=== PATIENT | female | born 1980 | race Caucasian/White ===

== ENCOUNTER 2019-06-28 05:22 | Inpatient (IN) | payer MEDICAID ==
[2019-06-28] MEDS ORDERED: Methylergonovine 0.2 MG/1 ML Amp IM PRN ×2 (07:03→17:41)
[2019-06-28] MEDS ORDERED: Carboprost Tromethamine 250 MCG/1 ML Amp IM PRN (07:03)
[2019-06-28] MEDS ORDERED: Sodium Chloride 0.9% 2.5 ML Syringe FLUSH PRN (07:03)
[2019-06-28] MEDS ORDERED: Ampicillin 2 GM in Sodium Chloride 0.9% 100 ML IV ONE (07:03)
[2019-06-28] MEDS ORDERED: Butorphanol 1 MG/ML SDV IVPUSH PRN (07:03)
[2019-06-28] MEDS ORDERED: Nalbuphine 10 MG/1 ML Vial IVPUSH PRN (07:03)
[2019-06-28] MEDS ORDERED: Sodium Chloride 0.9% 10 ML SDV IV PRN (07:03)
[2019-06-28] MEDS ORDERED: Water For Irrigation,Sterile 1,000 ML Container IRR PRN (07:03)
[2019-06-28] MEDS ORDERED: Sodium Chloride 0.9% 10 ML Syringe FLUSH PRN (07:03)
[2019-06-28] MEDS ORDERED: Misoprostol 200 MCG Tab PO PRN (07:03)
[2019-06-28] MEDS ORDERED: Tranexamic Acid 1,000 MG in Sodium Chloride 0.9% 100 ML IV PRN (07:03)
[2019-06-28] MEDS ORDERED: Lidocaine 1% 50 ML MDV INJECT PRN (07:03)
[2019-06-28] MEDS ORDERED: Lactated Ringers 1,000 ML IV SCH (07:15)
[2019-06-28] MEDS ORDERED: Oxytocin/0.9 % Sodium Chloride 30 UNIT/500 ML BAG IV SCH ×2 (07:15→13:45)
[2019-06-28] MEDS: Ampicillin 1 GM in Sodium Chloride 0.9% 50 ML IV SCH ×2 (10:45→16:30)
[2019-06-28] MEDS ORDERED: Terbutaline 1 MG/ML SDV SUBCUT PRN (13:37)
--- NOTE | 2019-06-28 17:08 | PCM.OPNOTE ---
- General Post-Op/Procedure Note Date of Surgery/Procedure: 06/28/19 Findings: of live male . Apgars 8/8. Weight pending. 3VC. Placenta intact. Pre Op Diagnosis: 38yo IUP at 39/3 presenting with SROM Post-Op Diagnosis: same Primary Surgeon: Yana Caro Broom Stitcher: Sneha Driver Role of Broom Stitcher: 4th Year Medical Student EBL in mLs: 300 Condition: Good
[2019-06-28] MEDS ORDERED: oxyCODONE 5 MG Tab PO PRN (17:41)
[2019-06-28] MEDS ORDERED: Lanolin 100% Cream 7 GM Tube TOP PRN (17:41)
[2019-06-28] MEDS ORDERED: Benzocaine/Menthol 20%-0.5% Spray 78 GM Cannister TOP PRN (17:41)
[2019-06-28] MEDS ORDERED: Bisacodyl 10 MG Supp RECTAL PRN (17:41)
[2019-06-28] MEDS ORDERED: Acetaminophen 500 MG Tab PO PRN ×2 (17:41)
[2019-06-28] MEDS ORDERED: Hydrocortisone 2.5% Crm 30 GM Tube TOP PRN (17:41)
[2019-06-28] MEDS ORDERED: Ibuprofen 400 MG Tab PO PRN (17:41)
[2019-06-28] MEDS ORDERED: Witch Hazel Medicated Pads 40/Jar TOP ONE (17:53)
[2019-06-28] MEDS ORDERED: Ibuprofen 800 MG Tab ONE (17:53)
[2019-06-28] MEDS ORDERED: Docusate Sodium 100 MG Cap ONE (17:54)
[2019-06-28] MEDS ORDERED: Benzocaine/Menthol 20%-0.5% Spray 78 GM Cannister ONE (17:54)
[2019-06-28] MEDS: Docusate Sodium 100 MG Cap PO PRN (18:01)
[2019-06-28] MEDS: Ibuprofen 800 MG Tab PO PRN (18:01)
[2019-06-28] MEDS: Witch Hazel Medicated Pads 40/Jar TOP PRN (18:01)
--- NOTE | 2019-06-28 18:29 | OR ---
SURGEON: Yana Caro M.D. DATE OF PROCEDURE: 06/28/2019 PREOPERATIVE DIAGNOSES: A39-3/7 weeks' intrauterine , premature rupture of membranes with induction, and term spontaneous vaginal delivery. POSTOPERATIVE DIAGNOSES: 39-3/7 weeks' intrauterine , premature rupture of membranes with induction, and term spontaneous vaginal delivery. PROCEDURE: Pitocin induction of labor and term spontaneous vaginal delivery. PRIMARY SURGEON: Yana Caro MD. CLAIMS MANAGER: ROWAN Pedraza. ANESTHESIA: None. ESTIMATED BLOOD LOSS: Less than 300 mL. FINDINGS: Liveborn male, scores 8 and 8, weighing 3640 g. Placenta spontaneous, Schultze intact, with 3 vessels. Perineum intact. BRIEF HISTORY: This is a 38-year-old female, G7, P 5-0-1-5, who presents at 39-3/7 weeks' gestation with spontaneous rupture of membranes at approximately 5:30 a.m. She had category 1 heart tones. She has had uncomplicated care. She is group B strep positive. She was started on ampicillin upon arrival, and she received 3 doses of ampicillin prior to delivery. Approximately 8 hours after rupture of membranes, she had only progressed from a 4 to a 5+ dilatation with mild irregular contractions. Therefore, she did agree to Pitocin augmentation, which was performed. She went up to a maximum of 8 milliunits per minute of Pitocin, and she progressed to complete. DESCRIPTION OF PROCEDURE: With the patient in dorsal lithotomy position, the patient pushed over a 10- minute time period to a 5+ station at which time the head was delivered spontaneously and atraumatically over the perineum with support. Notably, the head was delivered in a direct occiput posterior position with subsequent delivery of the 's right shoulder anteriorly and left shoulder posteriorly and remainder of the 's body. The infant was bulb suctioned by nose and mouth. After the cord had ceased to pulsate, it was doubly clamped and cut, and the infant was handed to the mother in the presence of the nurse attending delivery. The infant was a liveborn male, scores of 8 and 8, weighing 3640 g. Cord blood was collected for cord ABGs as well as routine cord blood sampling. Pitocin was initiated after delivery of the to assist with delivery of the placenta, which was delivered spontaneously, Schultze intact with 3 vessels. Upon inspection the pelvis and perineum, there were no periurethral, vaginal sidewall, cervical, rectal, or perineal lacerations. EBL was less than 300 mL. Mother and baby remained in LDR in good condition. EMY SCHMITZ /[id number] MTDD
[2019-06-29] MEDS: Ibuprofen 800 MG Tab PO PRN ×3 (00:21→17:22)
--- NOTE | 2019-06-29 04:54 | PCM.PNPP ---
<Sneha Driver - Last Filed: 06/29/19 04:54> - General Info Date of Service: 06/29/19 Functional Status: Reports: Pain Controlled - Review of Systems General: Reports: No Symptoms. Denies: Fever, Chills HEENT: Reports: No Symptoms. Denies: Headaches Pulmonary: Reports: No Symptoms. Denies: Shortness of Breath Cardiovascular: Reports: No Symptoms. Denies: Chest Pain, Palpitations Gastrointestinal: Reports: No Symptoms. Denies: Abdominal Pain Genitourinary: Reports: No Symptoms. Denies: Dysuria Musculoskeletal: Reports: No Symptoms Skin: Reports: No Symptoms Neurological: Reports: No Symptoms Psychiatric: Reports: No Symptoms - General Info Date of Service: 06/29/19 - Patient Data Vital Signs - Most Recent: Last Vital Signs Temp 97.5 F 06/28/19 21:53 Pulse 78 06/28/19 21:53 Resp 17 06/28/19 21:53 BP 123/62 06/28/19 21:53 Pulse Ox 97 06/28/19 21:53 Weight - Most Recent: 101.605 kg Lab Results - Last 24 Hours: Laboratory Results - last 24 hr 06/28/19 06/28/19 06/28/19 Range/Units 05:20 06:20 07:25 WBC 12.99 H (4.0-11.0) K/uL RBC 3.40 L (4.30-5.90) M/uL Hgb 11.0 L (12.0-16.0) g/dL Hct 32.9 L (36.0-46.0) % MCV 96.8 (80.0-98.0) fL MCH 32.4 H (27.0-32.0) pg MCHC 33.4 (31.0-37.0) g/dL RDW Std Deviation 47.7 (28.0-62.0) fl RDW Coeff of Brendan 14 (11.0-15.0) % Plt Count 238 (150-400) K/uL MPV 11.10 (7.40-12.00) fL Nucleated RBC % 0.0 /100WBC Nucleated RBCs # 0 K/uL Cord ABG pH (7.18-7.38) Cord ABG Base Excess (-10--2) Cord VBG pH (7.25-7.45) Cord VBG Base Excess (-10--2) Membrane Rupture NEGATIVE POSITIVE Blood Type Antibody Screen 06/28/19 06/28/19 Range/Units 07:25 16:51 WBC (4.0-11.0) K/uL RBC (4.30-5.90) M/uL Hgb (12.0-16.0) g/dL Hct (36.0-46.0) % MCV (80.0-98.0) fL MCH (27.0-32.0) pg MCHC (31.0-37.0) g/dL RDW Std Deviation (28.0-62.0) fl RDW Coeff of Brendan (11.0-15.0) % Plt Count (150-400) K/uL MPV (7.40-12.00) fL Nucleated RBC % /100WBC Nucleated RBCs # K/uL Cord ABG pH 7.267 (7.18-7.38) Cord ABG Base Excess -5 (-10--2) Cord VBG pH 7.342 (7.25-7.45) Cord VBG Base Excess -5 (-10--2) Membrane Rupture Blood Type O POSITIVE Antibody Screen NEGATIVE Med Orders - Current: Current Medications Acetaminophen (Tylenol Extra Strength) 500 mg PO Q4H PRN PRN Reason: Pain Acetaminophen (Tylenol Extra Strength) 1,000 mg PO Q4H PRN PRN Reason: Pain Benzocaine/Menthol (Dermoplast Pain Relief 20%-0.5% [place]) 78 gm TOP ASDIRECTED PRN PRN Reason: Perineal Comfort Measure Last Admin: 06/28/19 18:00 Dose: 78 gm Bisacodyl (Dulcolax) 10 mg RECTAL ONETIME PRN PRN Reason: Constipation Docusate Sodium (Colace) 100 mg PO BID PRN PRN Reason: Constipation Last Admin: 06/28/19 18:01 Dose: 100 mg Emollient Ointment (Lansinoh Hpa) 0 gm TOP ASDIRECTED PRN PRN Reason: Sore Nipples Hydrocortisone (Proctozone-Hc 2.5% Crm) 1 gm TOP Q6HR PRN PRN Reason: Itching Ibuprofen (Motrin) 400 mg PO Q4H PRN PRN Reason: Pain Ibuprofen (Motrin) 800 mg PO Q6H PRN PRN Reason: Pain Last Admin: 06/29/19 00:21 Dose: 800 mg Methylergonovine Maleate (Methergine) 0.2 mg IM ONETIME PRN PRN Reason: Excessive Vaginal Bleeding Oxycodone HCl (Oxycodone) 5 mg PO Q2H PRN PRN Reason: Pain Witch Hilda (Tucks) 1 pad TOP ASDIRECTED PRN PRN Reason: comfort care Last Admin: 06/28/19 18:01 Dose: 1 pad Discontinued Medications Benzocaine/Menthol (Dermoplast Pain Relief 20%-0.5% [place]) Confirm Administered Dose 78 gm .ROUTE .STK-MED ONE Stop: 06/28/19 17:55 Last Admin: 06/29/19 02:18 Dose: Not Given Butorphanol Tartrate (Stadol) 1 mg IVPUSH Q1H PRN PRN Reason: Pain Carboprost Tromethamine (Hemabate Ds) 250 mcg IM ASDIRECTED PRN PRN Reason: Post Hemorrhage Docusate Sodium (Colace) Confirm Administered Dose 100 mg .ROUTE .STK-MED ONE Stop: 06/28/19 17:55 Last Admin: 06/29/19 02:18 Dose: Not Given Tranexamic Acid 1,000 mg/ (Sodium Chloride) 110 mls @ 660 mls/hr IV ONETIME PRN PRN Reason: Bleeding Ampicillin Sodium 2 gm/ Sodium (Chloride) 100 mls @ 200 mls/hr IV ONETIME ONE Stop: 06/28/19 07:32 Last Admin: 06/28/19 07:15 Dose: 200 mls/hr Lactated Ringer's (Ringers, Lactated) 1,000 mls @ 150 mls/hr IV ASDIRECTED OLESYA Last Admin: 06/28/19 07:22 Dose: 150 mls/hr Oxytocin/Sodium Chloride (Oxytocin 30 Unit/500 Ml-Ns) 30 unit in 500 mls @ 500 mls/hr IV TITRATE OLESYA Ampicillin Sodium 1 gm/ Sodium (Chloride) 50 mls @ 100 mls/hr IV Q4H OLESYA Last Admin: 06/28/19 16:30 Dose: 100 mls/hr Oxytocin/Sodium Chloride (Oxytocin 30 Unit/500 Ml-Ns) 30 unit in 500 mls @ 1 mls/hr IV TITRATE OLESYA; Protocol Last Titration: 06/28/19 17:30 Dose: 150 munits/min, 150 mls/hr Ibuprofen (Motrin) Confirm Administered Dose 800 mg .ROUTE .STK-MED ONE Stop: 06/28/19 17:54 Last Admin: 06/29/19 02:17 Dose: Not Given Lidocaine HCl (Xylocaine 1%) 50 ml INJECT ONETIME PRN PRN Reason: Laceration repair Last Admin: 06/28/19 18:05 Dose: 50 ml Methylergonovine Maleate (Methergine) 0.2 mg IM ASDIRECTED PRN PRN Reason: Post Hemorrhage Misoprostol (Cytotec) 200 mcg PO ONETIME PRN PRN Reason: Post Hemorrhage Nalbuphine HCl (Nubain) 10 mg IVPUSH Q1H PRN PRN Reason: Pain (severe 7-10) Sodium Chloride (Saline Flush) 10 ml FLUSH ASDIRECTED PRN PRN Reason: Keep Vein Open Sodium Chloride (Saline Flush) 2.5 ml FLUSH ASDIRECTED PRN PRN Reason: Keep Vein Open Sodium Chloride (Normal Saline) 10 ml IV ASDIRECTED PRN PRN Reason: IV Use Sterile Water (Sterile Water For Irrigation) 1,000 ml IRR ASDIRECTED PRN PRN Reason: delivery Last Admin: 06/28/19 18:05 Dose: 1,000 ml Terbutaline Sulfate (Brethine) 0.25 mg SUBCUT ASDIRECTED PRN PRN Reason: Tacysystole Witch Hilda (Tucks) Confirm Administered Dose 1 pad TOP .STK-MED ONE Stop: 06/28/19 17:54 Last Admin: 06/29/19 02:17 Dose: Not Given - Interaction Infant Disposition, : in Room with Family Infant Interaction: Holding Feeding: Breastfed ; Nursed Well Support Person: - Recovery Exam Fundal Tone: Firm Fundal Level: 1 Fingerbreadths Below Umbilicus Fundal Placement: Midline Lochia Amount: Small Lochia Color: Rubra/Red Other Perinuem Description: Exam deferred due to no brand director. Patient has no concerns at this time. Episiotomy/Laceration: None Bladder Status: Voiding Urinary Elimination: Voided - Exam General: Alert, Oriented Lungs: Clear to Auscultation, Normal Respiratory Effort Cardiovascular: Regular Rate, Regular Rhythm GI/Abdominal Exam: Normal Bowel Sounds, Soft, Non-Tender, No Organomegaly, No Distention, No Abnormal Bruit, No Mass, Pelvis Stable Extremities: Normal Inspection, Non-Tender, No Pedal Edema, Normal Capillary Refill Skin: Warm, Dry, Intact Neurological: No New Focal Deficit Psy/Mental Status: Alert, Normal Affect, Normal Mood - Problem List & Annotations (1) Vaginal delivery SNOMED Code(s): 198651780 Code(s): O80 - ENCOUNTER FOR FULL-TERM UNCOMPLICATED DELIVERY Status: Acute Current Visit: Yes - Problem List Review Problem List Initiated/Reviewed/Updated: Yes - My Orders Last 24 Hours: My Active Orders 06/29/19 01:32 Ready for Discharge [RC] PER UNIT ROUTINE - Assessment Assessment:: PPD1. Minimal lochia. well. Tolerating regular diet. Would like to go home later today. - Plan Plan:: Regular diet, pain control PRN. Routine care. Discharge orders reviewed. <Yana Caro - Last Filed: 06/29/19 11:25> - Patient Data Vital Signs - Most Recent: Last Vital Signs Temp 36.3 C 06/29/19 08:10 Pulse 74 06/29/19 08:10 Resp 16 06/29/19 08:10 BP 109/58 L 06/29/19 08:10 Pulse Ox 97 06/29/19 08:10 Lab Results - Last 24 Hours: Laboratory Results - last 24 hr 06/28/19 06/29/19 Range/Units 16:51 05:56 Hgb 10.1 L (12.0-16.0) g/dL Hct 30.6 L (36.0-46.0) % Cord ABG pH 7.267 (7.18-7.38) Cord ABG Base Excess -5 (-10--2) Cord VBG pH 7.342 (7.25-7.45) Cord VBG Base Excess -5 (-10--2) Med Orders - Current: Current Medications Acetaminophen (Tylenol Extra Strength) 500 mg PO Q4H PRN PRN Reason: Pain Acetaminophen (Tylenol Extra Strength) 1,000 mg PO Q4H PRN PRN Reason: Pain Benzocaine/Menthol (Dermoplast Pain Relief 20%-0.5% [place]) 78 gm TOP ASDIRECTED PRN PRN Reason: Perineal Comfort Measure Last Admin: 06/28/19 18:00 Dose: 78 gm Bisacodyl (Dulcolax) 10 mg RECTAL ONETIME PRN PRN Reason: Constipation Docusate Sodium (Colace) 100 mg PO BID PRN PRN Reason: Constipation Last Admin: 06/29/19 09:34 Dose: 100 mg Emollient Ointment (Lansinoh Hpa) 0 gm TOP ASDIRECTED PRN PRN Reason: Sore Nipples Hydrocortisone (Proctozone-Hc 2.5% Crm) 1 gm TOP Q6HR PRN PRN Reason: Itching Ibuprofen (Motrin) 400 mg PO Q4H PRN PRN Reason: Pain Ibuprofen (Motrin) 800 mg PO Q6H PRN PRN Reason: Pain Last Admin: 06/29/19 09:34 Dose: 800 mg Methylergonovine Maleate (Methergine) 0.2 mg IM ONETIME PRN PRN Reason: Excessive Vaginal Bleeding Oxycodone HCl (Oxycodone) 5 mg PO Q2H PRN PRN Reason: Pain Witch Hilda (Tucks) 1 pad TOP ASDIRECTED PRN PRN Reason: comfort care Last Admin: 06/28/19 18:01 Dose: 1 pad Discontinued Medications Benzocaine/Menthol (Dermoplast Pain Relief 20%-0.5% [place]) Confirm Administered Dose 78 gm .ROUTE .STK-MED ONE Stop: 06/28/19 17:55 Last Admin: 06/29/19 02:18 Dose: Not Given Butorphanol Tartrate (Stadol) 1 mg IVPUSH Q1H PRN PRN Reason: Pain Carboprost Tromethamine (Hemabate Ds) 250 mcg IM ASDIRECTED PRN PRN Reason: Post Hemorrhage Docusate Sodium (Colace) Confirm Administered Dose 100 mg .ROUTE .STK-MED ONE Stop: 06/28/19 17:55 Last Admin: 06/29/19 02:18 Dose: Not Given Tranexamic Acid 1,000 mg/ (Sodium Chloride) 110 mls @ 660 mls/hr IV ONETIME PRN PRN Reason: Bleeding Ampicillin Sodium 2 gm/ Sodium (Chloride) 100 mls @ 200 mls/hr IV ONETIME ONE Stop: 06/28/19 07:32 Last Admin: 06/28/19 07:15 Dose: 200 mls/hr Lactated Ringer's (Ringers, Lactated) 1,000 mls @ 150 mls/hr IV ASDIRECTED OLESYA Last Admin: 06/28/19 07:22 Dose: 150 mls/hr Oxytocin/Sodium Chloride (Oxytocin 30 Unit/500 Ml-Ns) 30 unit in 500 mls @ 500 mls/hr IV TITRATE OLESYA Ampicillin Sodium 1 gm/ Sodium (Chloride) 50 mls @ 100 mls/hr IV Q4H OLESYA Last Admin: 06/28/19 16:30 Dose: 100 mls/hr Oxytocin/Sodium Chloride (Oxytocin 30 Unit/500 Ml-Ns) 30 unit in 500 mls @ 1 mls/hr IV TITRATE OLESYA; Protocol Last Titration: 06/28/19 17:30 Dose: 150 munits/min, 150 mls/hr Ibuprofen (Motrin) Confirm Administered Dose 800 mg .ROUTE .[facility] ONE Stop: 06/28/19 17:54 Last Admin: 06/29/19 02:17 Dose: Not Given Lidocaine HCl (Xylocaine 1%) 50 ml INJECT ONETIME PRN PRN Reason: Laceration repair Last Admin: 06/28/19 18:05 Dose: 50 ml Methylergonovine Maleate (Methergine) 0.2 mg IM ASDIRECTED PRN PRN Reason: Post Hemorrhage Misoprostol (Cytotec) 200 mcg PO ONETIME PRN PRN Reason: Post Hemorrhage Nalbuphine HCl (Nubain) 10 mg IVPUSH Q1H PRN PRN Reason: Pain (severe 7-10) Sodium Chloride (Saline Flush) 10 ml FLUSH ASDIRECTED PRN PRN Reason: Keep Vein Open Sodium Chloride (Saline Flush) 2.5 ml FLUSH ASDIRECTED PRN PRN Reason: Keep Vein Open Sodium Chloride (Normal Saline) 10 ml IV ASDIRECTED PRN PRN Reason: IV Use Sterile Water (Sterile Water For Irrigation) 1,000 ml IRR ASDIRECTED PRN PRN Reason: delivery Last Admin: 06/28/19 18:05 Dose: 1,000 ml Terbutaline Sulfate (Brethine) 0.25 mg SUBCUT ASDIRECTED PRN PRN Reason: Tacysystole Witkaitlynn Stevens (Tucks) Confirm Administered Dose 1 pad TOP .STK-MED ONE Stop: 06/28/19 17:54 Last Admin: 06/29/19 02:17 Dose: Not Given - Problem List Review Problem List Initiated/Reviewed/Updated: Yes - My Orders Last 24 Hours: My Active Orders 06/28/19 17:41 Patient Status [ADT] Routine May Shower [RC] ASDIRECTED Up ad Karen [RC] ASDIRECTED Vital Signs [RC] PER UNIT ROUTINE Acetaminophen [Tylenol Extra Strength] 1,000 mg PO Q4H PRN Acetaminophen [Tylenol Extra Strength] 500 mg PO Q4H PRN Benzocaine/Menthol [Dermoplast Pain Relief 20%-0.5% [place]] 78 gm TOP ASDIRECTED PRN Bisacodyl [Dulcolax] 10 mg RECTAL ONETIME PRN Docusate Sodium [Colace] 100 mg PO BID PRN Hydrocortisone [Proctozone-HC 2.5% Crm] 1 gm TOP Q6HR PRN Ibuprofen [Motrin] 400 mg PO Q4H PRN Ibuprofen [Motrin] 800 mg PO Q6H PRN Lanolin [Lansinoh HPA] See Dose Instructions TOP ASDIRECTED PRN Methylergonovine [Methergine] 0.2 mg IM ONETIME PRN Nigel Stevens [Tucks] 1 pad TOP ASDIRECTED PRN oxyCODONE 5 mg PO Q2H PRN Assess Lochia [WOMSER] Per Unit Routine Assess Uterine Involution [WOMSER] Per Unit Routine Perineal Care [OM.PC] Per Unit Routine Peripheral IV Discontinue [OM.PC] Routine Resuscitation Status Routine 06/28/19 Dinner Regular Diet [DIET] - Plan Plan:: Patient was seen and examined by me and I agree with above.
[2019-06-29] MEDS: Docusate Sodium 100 MG Cap PO PRN (09:34)
[2019-06-29] MEDS: Witch Hazel Medicated Pads 40/Jar TOP PRN (17:22)
== END 2019-06-29 19:40 | disposition home or self-care (01) | DRG 807 ==
LOC: MW.OBCHECK 05:22 → MW.OB 05:23 → MW.OBCHECK 07:04 → OBSVTOIN 16:51 → MW.OB 20:30
PROVIDERS: ADMIT Obstetrics & Gynecology; ATTEND Obstetrics & Gynecology
PROC: 0W8NXZZ Division of Female Perineum, External Approach (ICD-10-PCS; principal; 2019-06-28)
PROC: 10E0XZZ Delivery of Products of Conception, External Approach (ICD-10-PCS; 2019-06-28)
PROC: 3E033VJ Introduction of Other Hormone into Peripheral Vein, Percutaneous Approach (ICD-10-PCS; 2019-06-28)
DX: O42.92 Full-term premature rupture of membranes, unspecified as to length of time between rupture and onset of labor (principal); Z37.0 Single live birth; Z3A.39 39 weeks gestation of pregnancy; O99.820 Streptococcus B carrier state complicating pregnancy
CPT/HCPCS: 36415; 59025; 59409; 82803; 84112; 85014; 85018; 85027; 86850; 86900; 86901; A9270-GY; J0290; J2001; J2590; J7030; J7050; J7120

== ENCOUNTER 2020-10-04 07:52 | Day surgery (SDC) | payer MEDICAID ==
[~2020-10-04 07:52] MED LIST: Lactated Ringers 1,000 ML IV SCH; Sodium Chloride 0.9% 10 ML SDV IV PRN; Sodium Chloride 0.9% 10 ML Syringe FLUSH PRN; Sodium Chloride 0.9% 2.5 ML Syringe FLUSH PRN
--- NOTE | 2020-10-04 08:36 | PCM.PREANE ---
Preanesthetic Assessment - Anesthesia/Transfusion/Family Hx Anesthesia History: Prior Anesthesia Without Reaction Family History of Anesthesia Reaction: Other (see below) (unknown, foster care) Transfusion History: No Prior Transfusion(s) - Review of Systems General: No Symptoms Pulmonary: No Symptoms Cardiovascular: No Symptoms Gastrointestinal: No Symptoms Neurological: No Symptoms Other: Reports: None - Physical Assessment NPO Status Date: 10/03/20 Height: 5 ft 6.75 in Weight: 96.615 kg ASA Class: 2 Mental Status: Alert & Oriented x3 Airway Class: Mallampati = 2 Dentition: Reports: Normal Dentition ROM/Head Extension: Full Lungs: Clear to Auscultation, Normal Respiratory Effort Cardiovascular: Regular Rate, Regular Rhythm - Lab Values: Laboratory Last Values WBC 10.57 K/uL (4.0-11.0) 10/01/20 09:56 RBC 4.59 M/uL (4.30-5.90) 10/01/20 09:56 Hgb 14.4 g/dL (12.0-16.0) 10/01/20 09:56 Hct 44.5 % (36.0-46.0) 10/01/20 09:56 MCV 96.9 fL (80.0-98.0) 10/01/20 09:56 MCH 31.4 pg (27.0-32.0) 10/01/20 09:56 MCHC 32.4 g/dL (31.0-37.0) 10/01/20 09:56 RDW Std Deviation 46.3 fl (28.0-62.0) 10/01/20 09:56 RDW Coeff of Brendan 13 % (11.0-15.0) 10/01/20 09:56 Plt Count 279 K/uL (150-400) 10/01/20 09:56 MPV 12.00 fL (7.40-12.00) 10/01/20 09:56 Nucleated RBC % 0.0 /100WBC 10/01/20 09:56 Nucleated RBCs # 0 K/uL 10/01/20 09:56 Urine HCG, Qual NEGATIVE (NEGATIVE) 10/01/20 09:56 - Allergies Allergies/Adverse Reactions: Allergies Allergy/AdvReac Type Severity Reaction Status Date / Time No Known Allergies Allergy Verified 09/28/20 08:33 - Blood Blood Available: No - Anesthesia Plan Pre-Op Medication Ordered: None - Acknowledgements Anesthesia Type Planned: General Anesthesia Pt an Appropriate Candidate for the Planned Anesthesia: Yes Alternatives and Risks of Anesthesia Discussed w Pt/Guardian: Yes Pt/Guardian Understands and Agrees with Anesthesia Plan: Yes Additional Comments: anes prob list: chr pain syndromes: fibromyalgia and IBS, smoker, remote hx of poly substance use disorder (13 yrs ago) PLAN: ga/lma PreAnesthesia Questionnaire HEENT History: Reports: None Cardiovascular History: Reports: None Respiratory History: Reports: None Gastrointestinal History: Reports: Irritable Bowel Syndrome Genitourinary History: Reports: STD TRAFFIC OBSERVER History: Reports: PID, , Other (See Below) Other OB/BYN History: ETOP Musculoskeletal History: Reports: Fibromyalgia Neurological History: Reports: None Psychiatric History: Reports: Anxiety, Depression, PTSD Endocrine/Metabolic History: Reports: Obesity/BMI 30+ Hematologic History: Reports: None Immunologic History: Reports: None Oncologic (Cancer) History: Reports: None Dermatologic History: Reports: Eczema - Past Surgical History Head Surgeries/Procedures: Reports: None HEENT Surgical History: Reports: None Cardiovascular Surgical History: Reports: None Respiratory Surgical History: Reports: None GI Surgical History: Reports: Cholecystectomy, Colonoscopy, EGD Female Surgical History: Reports: D&C, Tubal Ligation Endocrine Surgical History: Reports: None Neurological Surgical History: Reports: None Musculoskeletal Surgical History: Reports: None Oncologic Surgical History: Reports: None Dermatological Surgical History: Reports: None - SUBSTANCE USE Tobacco Use Status *Q: Current Every Day Tobacco User Tobacco Use Within Last Twelve Months: Cigarettes - HOME MEDS Home Medications: Home Meds . [No Known Home Meds] 09/28/20 [History] - CURRENT (IN HOUSE) MEDS Current Meds: Current Medications Lactated Ringer's (Ringers, Lactated) 1,000 mls @ 125 mls/hr IV ASDIRECTED OLESYA Sodium Chloride (Saline Flush) 10 ml FLUSH ASDIRECTED PRN PRN Reason: Keep Vein Open Sodium Chloride (Saline Flush) 2.5 ml FLUSH ASDIRECTED PRN PRN Reason: Keep Vein Open Sodium Chloride (Normal Saline) 10 ml IV ASDIRECTED PRN PRN Reason: IV Use
[2020-10-04] MEDS ORDERED: Propofol 200 MG/20 ML SDV ONE (09:11)
[2020-10-04] MEDS ORDERED: Midazolam 1 MG/ML 2 ML SDV ONE (09:11)
[2020-10-04] MEDS ORDERED: fentaNYL 100 MCG/2 ML SDV ONE ×2 (09:11→09:41)
[2020-10-04] MEDS ORDERED: Dexamethasone 4 MG/ML 5 ML MDV ONE (09:51)
[2020-10-04] MEDS ORDERED: Ondansetron 4 MG/2 ML SDV ONE (09:51)
[2020-10-04] MEDS ORDERED: Atropine 0.1 MG/ML 10 ML Syringe IVPUSH PRN ×2 (09:52)
[2020-10-04] MEDS ORDERED: 50% Dextrose in Water 50 ML Syringe IVPUSH PRN (09:52)
[2020-10-04] MEDS ORDERED: HYDROmorphone 2 MG/ML Syringe IVPUSH PRN (09:52)
[2020-10-04] MEDS ORDERED: Albuterol 0.083% 2.5 MG/3 ML Neb Soln NEB PRN (09:52)
[2020-10-04] MEDS ORDERED: Naloxone 0.4 MG/ML Syringe IVPUSH PRN (09:52)
[2020-10-04] MEDS ORDERED: fentaNYL 100 MCG/2 ML SDV IVPUSH PRN (09:52)
[2020-10-04] MEDS ORDERED: Ondansetron 4 MG/2 ML SDV IVPUSH PRN (09:52)
[2020-10-04] MEDS ORDERED: EPINEPHrine 1:10,000 1 MG/10 ML Syringe IVPUSH PRN (09:52)
[2020-10-04] MEDS ORDERED: Ketorolac 30 MG/ML SDV ONE (10:01)
--- NOTE | 2020-10-04 10:35 | PCM.OPNOTE ---
- General Post-Op/Procedure Note Date of Surgery/Procedure: 10/04/20 Operative Procedure(s): Diagnostic hysteroscopy/dilation and curretage of endometrium. Thermal endometrial ablation Findings: Normal appearing uterine cavity Pre Op Diagnosis: Menorrhagia Post-Op Diagnosis: Same Anesthesia Technique: General LMA Primary Surgeon: Monet Stoll Fluid Replacement, Intraop: 450 (fluid deficit 40 mL NS) EBL in mLs: 5 Complications: none known Condition: Good Free Text/Narrative:: Intake & Output 10/03/20 10/04/20 10/04/20 22:59 06:59 14:59 Intake Total 450 Balance 450 Dictation [id number]
[2020-10-04] MEDS ORDERED: Ibuprofen 600 MG Tab PO ONE (10:52)
--- NOTE | 2020-10-04 11:15 | PCM48HPAN ---
Post Anesthesia Note - EVALUATION WITHIN 48HRS OF ANESTHETIC Vital Signs in Normal Range: Yes Patient Participated in Evaluation: Yes Respiratory Function Stable: Yes Airway Patent: Yes Cardiovascular Function Stable: Yes Hydration Status Stable: Yes Pain Control Satisfactory: Yes Nausea and Vomiting Control Satisfactory: Yes Mental Status Recovered: Yes Vital Signs: Last Vital Signs Temp 97.5 F 10/04/20 08:30 Pulse 63 10/04/20 10:24 Resp 11 L 10/04/20 10:24 BP 139/85 10/04/20 10:24 Pulse Ox 100 10/04/20 10:24
--- NOTE | 2020-10-04 11:15 | PCM.POSTAN ---
POST ANESTHESIA ASSESSMENT - MENTAL STATUS Mental Status: Alert, Oriented - VITAL SIGNS Vital Signs: Last Vital Signs Temp 97.5 F 10/04/20 08:30 Pulse 63 10/04/20 10:24 Resp 11 L 10/04/20 10:24 BP 139/85 10/04/20 10:24 Pulse Ox 100 10/04/20 10:24 - RESPIRATORY Respiratory Status: Respiratory Rate WNL, Airway Patent, O2 Saturation Stable - CARDIOVASCULAR CV Status: Pulse Rate WNL, Blood Pressure Stable - GASTROINTESTINAL GI Status: No Symptoms - POST OP HYDRATION Hydration Status: Adequate & Stable
--- NOTE | 2020-10-04 11:31 | OR ---
SURGEON: Monet Stoll M.D. DATE OF PROCEDURE: 10/04/2020 PREOPERATIVE DIAGNOSIS: Menorrhagia. POSTOPERATIVE DIAGNOSIS: Menorrhagia. PROCEDURE: Diagnostic hysteroscopy with dilation and curettage and thermal endometrial ablation. PRIMARY SURGEON: Monet Stoll MD ANESTHESIA: General LMA. FINDINGS: Normal-appearing uterine cavity. COMPLICATIONS: None known. DISPOSITION: The patient to PACU in stable condition, specimen to pathology. PROCEDURE DETAILS: Philly is a 40-year-old female, who has had a previous bilateral salpingectomy for permanent control, who is having ongoing difficulty with heavy menses. At this time, she would like to proceed with surgical intervention in the form of thermal endometrial ablation. Proper consent was obtained after discussing risks of procedure with the patient. The patient was taken to the operating room where she underwent general LMA, was placed in modified dorsal lithotomy position, prepped and draped in usual sterile fashion. SCDs to lower extremity. Time-out was performed. Bladder had been drained. Speculum was introduced in the vagina. Posterior lip of the cervix was grasped with an Allis clamp. Hysteroscope was now gently introduced in the uterine cavity using normal saline as distention media. Fundus was visualized. Right ostia, left ostia, lower uterine segment, and endocervical canal with no evidence of any intracavitary lesions. Therefore, hysteroscope was removed. Gentle curettage of endometrium was performed. Specimens will be sent to pathology. At this juncture, I was able to proceed with the thermal endometrial ablation using Tressa device. Tressa was prepped according to wheel and caster repairer protocol. The Tressa was introduced into the uterine cavity up to the level of the fundus. Balloon was insufflated, arms extended, and priming series was completed with no integrity issues. At this point, I was able to proceed with the 120-second ablative process. When this was completed, the syringe was released, arms folded in, and the device was removed from the uterine cavity. Hemostasis appeared evident. All instruments removed from the vagina. Sponge and instrument count was correct. The patient tolerated the procedure well overall. She will go to PACU in stable condition, specimen to pathology. ISSAC / NADIR /[id number]
== END 2020-10-04 11:22 | disposition home or self-care (01) ==
LOC: MW.SDS 07:52
PROVIDERS: ATTEND Obstetrics & Gynecology
DX: N92.0 Excessive and frequent menstruation with regular cycle (principal); F41.9 Anxiety disorder, unspecified; F17.210 Nicotine dependence, cigarettes, uncomplicated; F32.9 Major depressive disorder, single episode, unspecified; E66.9 Obesity, unspecified; Z98.890 Other specified postprocedural states; Z68.33 Body mass index [BMI] 33.0-33.9, adult; Z79.899 Other long term (current) drug therapy
CPT/HCPCS: 36415; 58563; 81025; 85027; 88305; A9270; J0131; J1100; J1885; J2001; J2250; J2704; J7120; 00952; J2405; J3010

== ENCOUNTER 2022-12-05 11:16 | Day surgery (SDC) | payer MEDICAID ==
[~2022-12-05 11:16] MED LIST changes: +Propofol 200 MG/20 ML SDV ONE; -Sodium Chloride 0.9% 10 ML SDV IV PRN; +Sodium Chloride 0.9% 20 ML SDV IV PRN
[2022-12-05] MEDS ORDERED: fentaNYL 100 MCG/2 ML SDV ONE ×2 (12:18→12:35)
[2022-12-05] MEDS ORDERED: Propofol 200 MG/20 ML SDV ONE (12:37)
== END 2022-12-05 13:26 | disposition home or self-care (01) ==
LOC: MW.SDS 11:16
PROVIDERS: ATTEND Surgery
DX: K63.5 Polyp of colon (principal); F41.9 Anxiety disorder, unspecified; K58.9 Irritable bowel syndrome, unspecified; E66.9 Obesity, unspecified; G62.9 Polyneuropathy, unspecified; F17.210 Nicotine dependence, cigarettes, uncomplicated; M79.10 Myalgia, unspecified site; F32.A Depression, unspecified; Z79.899 Other long term (current) drug therapy; Z88.0 Allergy status to penicillin; Z88.1 Allergy status to other antibiotic agents; Z90.49 Acquired absence of other specified parts of digestive tract; Z98.890 Other specified postprocedural states; Z68.31 Body mass index [BMI] 31.0-31.9, adult
CPT/HCPCS: 45380; 81025; J2704; J3010; J7120; 00811

== ENCOUNTER 2024-02-20 18:07 | Inpatient (IN) | payer MEDICAID ==
[2024-02-20 19:26] LABS: CORONAVIRUS COVID-19 NAA NEGATIVE (NEGATIVE); INFLUENZA A NAA NEGATIVE (NEGATIVE); INFLUENZA B NAA NEGATIVE (NEGATIVE)
[2024-02-20] MEDS: Morphine 4 MG/ML Syringe IVPUSH ONE (19:35)
[2024-02-20] MEDS: Sodium Chloride 0.9% 10 ML Syringe FLUSH PRN (19:35)
[2024-02-20] MEDS: Sodium Chloride 0.9% 2.5 ML Syringe FLUSH PRN (19:35)
[2024-02-20] MEDS: Ondansetron 4 MG/2 ML SDV IVPUSH ONE (19:35)
[2024-02-20 19:39] LABS: BASOPHILS ABSOLUTE AUTO 0.04 K/uL (0.00-0.20); BASOPHILS PERCENT AUTO 0.4 % (0.0-1.0); EOSINOPHILS ABSOLUTE AUTO 0.08 K/uL (0.00-0.45); EOSINOPHILS PERCENT AUTO 0.8 % (0.0-6.0); HEMATOCRIT 28.7 % (37.0-47.0); HEMOGLOBIN 9.7 g/dL (12.0-16.0); IMMATURE GRAN ABSOLUTE AUTO 0.04 K/uL (0.00-0.05); IMMATURE GRAN PERCENT AUTO 0.4 % (0.0-0.4); LYMPHOCYTES ABSOLUTE AUTO 1.29 K/uL (1.00-4.80); LYMPHOCYTES PERCENT AUTO 13.3 % (24.0-44.0); MEAN CORPUSCULAR HEMOGLOBIN 31.1 pg (28.0-32.0); MEAN CORPUSCULAR HGB CONC 33.8 g/dL (32.0-36.0); MEAN PLATELET VOLUME 9.6 fL (9.4-12.3); MONOCYTES ABSOLUTE AUTO 0.77 K/uL (0.00-0.80); NEUTROPHILS ABSOLUTE AUTO 7.45 K/uL (1.80-7.70); NEUTROPHILS PERCENT AUTO 77.1 % (41.0-71.0); PLATELET COUNT,PLT 460 K/uL (150-400); RED BLOOD CELL COUNT 3.12 M/uL (4.10-5.30); WHITE BLOOD CELL COUNT,WBC 9.67 K/uL (3.9-11.3)
[2024-02-20 20:03] LABS: BILIRUBIN,URINE NEGATIVE (NEGATIVE); COLOR,URINE YELLOW; GLUCOSE,URINE NEGATIVE (NEGATIVE); KETONES,URINE NEGATIVE (NEGATIVE); LEUKOCYTE ESTERASE,URINE SMALL (NEGATIVE); NITRITE,URINE NEGATIVE (NEGATIVE); OCCULT BLOOD,URINE MODERATE (NEGATIVE); PROTEIN,URINE NEGATIVE (NEGATIVE); UROBILINOGEN,URINE 0.2 EU/dL (<2.0)
[2024-02-20 20:06] LABS: A/G RATIO 0.7 (0.9-1.6); ALBUMIN 3.1 g/dL (3.4-5.0); BILIRUBIN TOTAL 1.1 mg/dL (0.2-1.0); CARBON DIOXIDE,CO2 27.1 mmol/L (21.0-32.0); CREATININE 0.8 mg/dL (0.6-1.0); EST CRCL DRUG DOSING (CG) 86.63 mL/min; POTASSIUM,K 3.2 mmol/L (3.5-5.1); PROTEIN TOTAL,TP 7.4 g/dL (6.4-8.2)
[2024-02-20] MEDS: Acetaminophen 500 MG Tab PO ONE (20:16)
[2024-02-20] MEDS: Iopamidol 755 MG/ML 500 ML Multipack Bottle IVPUSH STA (20:40)
[2024-02-20 21:18] LABS: APPEARANCE,URINE HAZY
[2024-02-20 21:19] LABS: BACTERIA,URINE FEW (NEGATIVE); EPITHELIAL CELLS,URINE FEW (NONE-FEW); RBC,URINE 0-2 (0-2/HPF)
[2024-02-20] MEDS ORDERED: Clindamycin Phosphate in D5W 900 MG in Premix Bag 1 BAG IV ONE (22:28)
[2024-02-20] MEDS: fentaNYL 100 MCG/2 ML SDV IVPUSH ONE (23:11)
[2024-02-20] MEDS: Lactated Ringers 1,000 ML IV ONE (23:16)
[2024-02-20] MEDS: Clindamycin Phosphate in D5W 50 ML IV ONE (23:16)
[2024-02-21] MEDS: Ondansetron 4 MG/2 ML SDV IVPUSH PRN (06:19)
[2024-02-21] MEDS: Acetaminophen 1,000 MG in Premix Bag 1 BAG IV PRN (07:07)
[2024-02-21] MEDS ORDERED: Gentamicin Pediatric 10 MG/ML 2 ML SDV IV ONE (10:18)
[2024-02-21] MEDS ORDERED: Clindamycin Phosphate in D5W 900 MG in Premix Bag 1 BAG IV ONE (10:18)
[2024-02-21] MEDS ORDERED: Clindamycin Phosphate in D5W 900 MG in Premix Bag 1 BAG IV SCH (10:30)
[2024-02-21] MEDS ORDERED: Dexamethasone 4 MG/ML 5 ML MDV ONE (10:31)
[2024-02-21] MEDS ORDERED: Ondansetron 4 MG/2 ML SDV ONE (10:31)
[2024-02-21] MEDS ORDERED: dexmedeTOMIDine HCl 200 MCG/2 ML SDV ONE (10:31)
[2024-02-21] MEDS ORDERED: Lidocaine 2% 5 ML SDV ONE (10:31)
[2024-02-21] MEDS ORDERED: Sugammadex Sodium 200 MG/2 ML VIAL IV ONE ×2 (10:31→11:42)
[2024-02-21] MEDS ORDERED: Rocuronium Bromide 50 MG/5 ML Syringe ONE ×2 (10:31→11:10)
[2024-02-21] MEDS ORDERED: fentaNYL 100 MCG/2 ML SDV ONE (10:32)
[2024-02-21] MEDS ORDERED: propofoL 100 ML ONE (10:33)
[2024-02-21] MEDS ORDERED: Water For Injection, Sterile 20 ML ONE (10:34)
[2024-02-21] MEDS ORDERED: Morphine 10 MG/ML SDV ONE (10:35)
[2024-02-21] MEDS ORDERED: propofoL 0 ML ONE (10:36)
[2024-02-21] MEDS ORDERED: Scopalamine 1mg/3day Transdermal Patch ONE (10:45)
[2024-02-21] MEDS ORDERED: Ketamine HCL/NACL, ISO-OSM 50 MG/5 ML Syringe ONE (11:01)
[2024-02-21] MEDS ORDERED: Magnesium Sulfate (4.06 MEQ/ML) 5 GM/10 ML SDV ONE (11:01)
[2024-02-21] MEDS ORDERED: Metoclopramide 10 MG/2 ML SDV ONE (11:10)
[2024-02-21] MEDS ORDERED: Ibuprofen 600 MG Tab PO PRN (11:59)
[2024-02-21] MEDS ORDERED: Promethazine 25 MG/ML SDV IM PRN (11:59)
[2024-02-21] MEDS ORDERED: Acetaminophen 325 MG Tab PO PRN (11:59)
[2024-02-21] MEDS ORDERED: Acetaminophen/oxyCODONE 325-5 MG Tab PO PRN (11:59)
[2024-02-21] MEDS ORDERED: Ondansetron 4 MG/2 ML SDV IVPUSH PRN (11:59)
[2024-02-21] MEDS: Clindamycin Phosphate in D5W 900 MG in Premix Bag 1 BAG IV ONE (12:31)
[2024-02-21] MEDS: Sodium Ferric Gluconate Cmplex 125 MG in Sodium Chloride 0.9% 100 ML IV ONE (15:01)
== END 2024-02-21 17:59 | disposition home or self-care (01) | DRG 989 ==
LOC: MW.ED 18:07 → MW.MS 22:29
PROVIDERS: ADMIT Obstetrics & Gynecology; ATTEND Obstetrics & Gynecology
PROC: 0U9G7ZZ Drainage of Vagina, Via Natural or Artificial Opening (ICD-10-PCS; principal; 2024-02-21 10:45)
DX: R18.8 Other ascites (principal); N99.820 Postprocedural hemorrhage of a genitourinary system organ or structure following a genitourinary system procedure; G62.9 Polyneuropathy, unspecified; F41.9 Anxiety disorder, unspecified; F32.A Depression, unspecified; E66.9 Obesity, unspecified; Z75.8 Other problems related to medical facilities and other health care; E55.9 Vitamin D deficiency, unspecified; F17.210 Nicotine dependence, cigarettes, uncomplicated; Z90.710 Acquired absence of both cervix and uterus; Z98.890 Other specified postprocedural states; Z88.0 Allergy status to penicillin; Z88.8 Allergy status to other drugs, medicaments and biological substances; Z79.899 Other long term (current) drug therapy; Z68.34 Body mass index [BMI] 34.0-34.9, adult; Z90.49 Acquired absence of other specified parts of digestive tract; Z90.722 Acquired absence of ovaries, bilateral; Z90.79 Acquired absence of other genital organ(s); Z98.51 Tubal ligation status
CPT/HCPCS: 0240U; 36415; 74177; 80053; 81001; 83605; 85025; 87070; 87075; 87077; 87186; 87205; 96374; 96375; 99285; 00940; A9270-GY; C1729; J0131; J0736; J1100; J2270; J2405; J2704; J2765; J2916; J3010; J3475; J3490; J7120; Q9967

== ENCOUNTER 2024-05-21 14:10 | Emergency (ER) | payer MEDICAID ==
[2024-05-21 15:24] LABS: APPEARANCE,URINE CLEAR; BILIRUBIN,URINE NEGATIVE (NEGATIVE); COLOR,URINE YELLOW; GLUCOSE,URINE NEGATIVE (NEGATIVE); KETONES,URINE 15 mg/dL (NEGATIVE); LEUKOCYTE ESTERASE,URINE NEGATIVE (NEGATIVE); NITRITE,URINE NEGATIVE (NEGATIVE); OCCULT BLOOD,URINE NEGATIVE (NEGATIVE); PH,URINE 5.5 (5.0-8.0); PROTEIN,URINE NEGATIVE (NEGATIVE); UROBILINOGEN,URINE 0.2 EU/dL (<2.0)
[2024-05-21 15:31] LABS: BASOPHILS PERCENT AUTO 0.8 % (0.0-1.0); EOSINOPHILS ABSOLUTE AUTO 0.31 K/uL (0.00-0.45); EOSINOPHILS PERCENT AUTO 2.6 % (0.0-6.0); HEMATOCRIT 41.8 % (37.0-47.0); HEMOGLOBIN 14.1 g/dL (12.0-16.0); IMMATURE GRAN ABSOLUTE AUTO 0.03 K/uL (0.00-0.05); IMMATURE GRAN PERCENT AUTO 0.3 % (0.0-0.4); LYMPHOCYTES ABSOLUTE AUTO 2.32 K/uL (1.00-4.80); LYMPHOCYTES PERCENT AUTO 19.5 % (24.0-44.0); MEAN CORPUSCULAR HEMOGLOBIN 30.1 pg (28.0-32.0); MEAN CORPUSCULAR HGB CONC 33.7 g/dL (32.0-36.0); MEAN CORPUSCULAR VOLUME 89.3 fL (83.0-99.0); MONOCYTES ABSOLUTE AUTO 0.61 K/uL (0.00-0.80); MONOCYTES PERCENT AUTO 5.1 % (0.0-8.0); NEUTROPHILS ABSOLUTE AUTO 8.52 K/uL (1.80-7.70); NEUTROPHILS PERCENT AUTO 71.7 % (41.0-71.0); PLATELET COUNT,PLT 308 K/uL (150-400); RED BLOOD CELL COUNT 4.68 M/uL (4.10-5.30); WHITE BLOOD CELL COUNT,WBC 11.89 K/uL (3.9-11.3)
[2024-05-21] MEDS: Morphine 4 MG/ML Syringe IVPUSH ONE (15:32)
[2024-05-21] MEDS: Ondansetron 4 MG/2 ML SDV IVPUSH ONE (15:32)
[2024-05-21] MEDS: Sodium Chloride 0.9% 1,000 ML IV ONE (15:32)
[2024-05-21 15:59] LABS: A/G RATIO 1.2 (0.9-1.6); ALBUMIN 4.2 g/dL (3.4-5.0); BILIRUBIN TOTAL 1.1 mg/dL (0.2-1.0); CALCIUM 9.3 mg/dL (8.5-10.1); CARBON DIOXIDE,CO2 26.1 mmol/L (21.0-32.0); CREATININE 0.8 mg/dL (0.6-1.0); EST CRCL DRUG DOSING (CG) 86.63 mL/min; POTASSIUM,K 3.9 mmol/L (3.5-5.1); PROTEIN TOTAL,TP 7.8 g/dL (6.4-8.2)
[2024-05-21] MEDS: Iopamidol 755 MG/ML 500 ML Multipack Bottle IVPUSH STA (16:21)
[2024-05-21] MEDS: Ketorolac 30 MG/ML SDV IVPUSH ONE (17:15)
[2024-05-21] MEDS: Dicyclomine 10 MG Cap PO ONE (17:19)
== END 2024-05-21 23:26 | disposition home or self-care (01) ==
LOC: MW.ED 14:10
DX: K52.9 Noninfective gastroenteritis and colitis, unspecified (principal); K76.0 Fatty (change of) liver, not elsewhere classified; F17.210 Nicotine dependence, cigarettes, uncomplicated; Z88.0 Allergy status to penicillin; Z88.8 Allergy status to other drugs, medicaments and biological substances; Z79.899 Other long term (current) drug therapy; Z90.49 Acquired absence of other specified parts of digestive tract; Z90.710 Acquired absence of both cervix and uterus; Z75.8 Other problems related to medical facilities and other health care
CPT/HCPCS: 36415; 74177; 76856; 80053; 81003; 83690; 85025; 96361; 96374; 96375; 99284; A9270; J1885; J2270; J2405; J7030; Q9967

== ENCOUNTER 2025-09-18 17:51 | Emergency (ER) | payer MEDICAID | END 2025-09-18 19:33 | disposition home or self-care (01) | LOC: MW.ED 17:51 | DX: J02.9 Acute pharyngitis, unspecified (principal); F17.200 Nicotine dependence, unspecified, uncomplicated; Z75.3 Unavailability and inaccessibility of health-care facilities; Z88.0 Allergy status to penicillin; Z88.8 Allergy status to other drugs, medicaments and biological substances; Z79.899 Other long term (current) drug therapy; Z90.49 Acquired absence of other specified parts of digestive tract | CPT/HCPCS: 87651; 99283 ==